=== PATIENT | male | born 1985 ===

== ENCOUNTER 2021-08-02 21:38 | Emergency (ER) | payer SELFPAY | END 2021-08-02 22:10 | disposition home or self-care (01) | LOC: CSHERS 21:38 | DX: F10.20 Alcohol dependence, uncomplicated (principal); I10 Essential (primary) hypertension; F17.210 Nicotine dependence, cigarettes, uncomplicated; Z79.899 Other long term (current) drug therapy | CPT/HCPCS: 99282 ==